=== PATIENT | male | born 1950 | race Caucasian/White ===

== ENCOUNTER 2018-09-30 13:25 | Inpatient (IN) | payer MEDICAID, OTHER ==
[2018-09-30] MEDS ORDERED: Aspirin 325 mg EC Tablets PO STA (14:42)
[2018-09-30 14:52] LABS: BASO % 0.3 % (0.0-2.0); EOS # 0.3 K/uL (0.0-0.7); EOS % 5.4 % (0.0-4.0); HEMOGLOBIN 14.5 g/dL (12.0-18.0); LYMPH # 1.8 K/uL (1.0-4.3); LYMPH % 32.3 % (20.0-40.0); MEAN CELL VOLUME 88.4 fL (80.0-94.0); MEAN CORPUSCULAR HEMOGLOBIN 30.1 pg (27.0-31.0); MEAN CORPUSCULAR HGB CONC 34.1 g/dL (33.0-37.0); MEAN PLATELET VOLUME 10.1 fL (7.2-11.7); MONO # 0.6 K/uL (0.0-0.8); MONO % 10.1 % (0.0-10.0); NEUT # 2.9 K/uL (1.8-7.0); NEUT % 51.9 % (50.0-75.0); NRBC % 0.1 % (0.0-2.0); RBC 4.81 Mil/uL (4.40-5.90); RED CELL DISTRIBUTION WIDTH 12.6 % (11.5-14.5); WHITE BLOOD COUNT 5.5 K/uL (4.8-10.8)
[2018-09-30 15:00] LABS: INR 2.8; PROTHROMBIN TIME 30.2 SECONDS (9.7-12.2)
[2018-09-30 15:07] LABS: ALB/GLOB RATIO 1.2 (1.0-2.1); ALT/SGPT 23 U/L (21-72); AST/SGOT 24 U/L (17-59); BLOOD UREA NITROGEN 15 mg/dL (9-20); CALCIUM 8.7 mg/dl (8.6-10.4); GFR NON-AFRICAN AMERICAN > 60
[2018-09-30 15:12] LABS: B-TYPE NATRIURETIC PEPTIDE 52.6 pg/mL (0-900)
[2018-09-30] MEDS ORDERED: Aspirin 325 mg EC Tablets PO ONE (15:25)
--- NOTE | 2018-09-30 15:25 | RAD ---
Date of service: 09/30/2018 PROCEDURE: CHEST RADIOGRAPH, 1 VIEW HISTORY: chest pain COMPARISON: None available. FINDINGS: LUNGS: Clear. PLEURA: No pneumothorax or pleural fluid seen. CARDIOVASCULAR: No aortic atherosclerotic calcification present. No radiographic findings to suggest acute or significant cardiovascular disease. Incidental Finding(s): Postoperative changes related to sternotomy. OSSEOUS STRUCTURES: No significant abnormalities. VISUALIZED UPPER ABDOMEN: Normal. OTHER FINDINGS: None. IMPRESSION: No active disease.
--- NOTE | 2018-09-30 15:54 | C.PDOC ---
History Of Present Illness 67 y/o male presents to ED with c/o chest pain since last night associated with dyspnea on exertion. As per daughter patient has been more sob and unable to walk 1 flight of stairs. As per daughter patient has history of CABG 4 years ago and currently denies nausea, vomiting, diarrhea, leg swelling or any other complaints at this time. Time Seen by Provider: 09/30/18 13:54 Chief Complaint (Nursing): Chest Pain History Per: Patient, Family History/Exam Limitations: no limitations Onset/Duration Of Symptoms: Days Current Symptoms Are (Timing): Still Present Past Medical History Reviewed: Historical Data, Nursing Documentation, Vital Signs Vital Signs: Last Vital Signs Temp 98.1 F 09/30/18 13:34 Pulse 72 09/30/18 13:34 Resp 18 09/30/18 13:34 BP 118/70 09/30/18 13:34 Pulse Ox 95 09/30/18 13:34 - Medical History PMH: HTN Surgical History: No Surg Hx Family History: States: No Known Family Hx - Social History Hx Alcohol Use: No Hx Substance Use: No Review Of Systems Constitutional: Negative for: Fever, Chills Cardiovascular: Positive for: Chest Pain Respiratory: Positive for: SOB with Excertion. Negative for: Cough Gastrointestinal: Negative for: Nausea, Vomiting, Diarrhea Skin: Negative for: Rash Physical Exam - Physical Exam Appears: Non-toxic, Chronically Ill Skin: Warm, Dry, No Rash Head: Atraumatic, Normacephalic Eye(s): bilateral: Normal Inspection, PERRL, EOMI Oral Mucosa: Moist Throat: No Erythema, No Exudate Neck: Normal ROM, Supple Chest: Symmetrical, No Tenderness Cardiovascular: Rhythm Regular, No Friction Rub, No Murmur Respiratory: Normal Breath Sounds, No Rales, No Rhonchi, No Wheezing Gastrointestinal/Abdominal: Soft, No Tenderness, No Guarding, No Rebound Back: Normal Inspection, No CVA Tenderness Extremity: Normal ROM, No Pedal Edema, Capillary Refill (<2 seconds), No Swelling Neurological/Psych: Oriented x3, Normal Speech, Normal Cognition, Normal Motor Gait: Steady ED Course And Treatment - Laboratory Results Result Diagrams: 09/30/18 14:48 09/30/18 14:48 O2 Sat by Pulse Oximetry: 95 (RA) Pulse Ox Interpretation: Normal Medical Decision Making Medical Decision Making: The case was discussed with the hospitalist Dr. Obrien who agrees to place the patient on observation. Disposition - Disposition Disposition: HOSPITALIZED Disposition Time: 16:50 Condition: STABLE Forms: [facility] (Kenyan) - POA Present On Arrival: None - Clinical Impression Clinical Impression: Chest pain, Dyspnea on exertion - PA / MARKETING DEVELOPMENT REPRESENTATIVE / Resident Statement MD/DO has reviewed & agrees with the documentation as recorded. - Scribe Statement The provider has reviewed the documentation as recorded by the Luisibbutch Shahid All medical record entries made by the Luisibbutch were at my direction and personally dictated by me. I have reviewed the chart and agree that the record accurately reflects my personal performance of the history, physical exam, medical decision making, and the department course for this patient. I have also personally directed, reviewed, and agree with the discharge instructions and disposition.
--- NOTE | 2018-09-30 19:48 | CP.PCM.HP ---
History of Present Illness - History of Present Illness History of Present Illness: CC: Left sided Chest Pain Michaele: [employer] Follow Up Specialist HPI: Patient is a 67 year old male with past medical history of HTN, DM, CAD, CA BG (November 21, 2013 at [facility]), bilateral Glaucoma, who presents to the ED with his daughter with complaints of left-sided chest pain that has started 2-3 days ago around 10-11am while he was at home resting. Patient reports that since the initiation of his chest pain, he has been e xperiencing his symptoms daily in an intermittent pattern. Patient describes his chest pain as non-radiating dull, achy intermittent pain that lasts for 15-20 minutes that is relieve by a medication patient cannot recall. Patient reports that his chest pain occurs at rest and on exertion. Patient denies any other associated symptoms such as nausea, vomiting, diaphoresis, palpitations, syncope and numbness/tingling but does admits to mild shortness of breath that exacerbated on exertion. Patient [place] most of his care in his country Code Status: Full code PMD: None Production Line Operator: None PMHx:HTN, DM, CAD, bilateral Glaucoma PSHx: CABG (November 21, 2013 at [facility]), FHx: Unknown Medications: As per EMR: Asa 81mg PO QD, Plavix 75mg PO daily, liptor 10mg PO HS, Azpot 1drop OU BID, warfarin 5mg PO daily and Zioptan 1 drop OU HS Allergies: NKDA Social Hx: Lives with one of his daughter in [place]. Retired. Denies any current or former use of Tobacco, ETOH and illicit drug use Present on Admission - Present on Admission Any Indicators Present on Admission: No Review of Systems - Constitutional Constitutional: absent: Chills, Fever, Headache - EENT Eyes: absent: Blurred Vision, Change in Vision Ears: absent: Dizziness Nose/Mouth/Throat: absent: Epistaxis, Nasal Congestion - Cardiovascular Cardiovascular: Chest Pain, Chest Pain at Rest, Chest Pain with Activity, Dyspnea on Exertion. absent: Edema, Irregular Heart Rhythm, Leg Edema, Leg Ulcers, Lightheadedness, Orthopnea, Palpitations, Paroxysmal Nocturnal Dyspnea, Pedal Edema, Radiating Pain - Respiratory Respiratory: Dyspnea. absent: Hemoptysis, Dyspnea on Exertion, Wheezing, Snoring, Pain on Inspiration - Gastrointestinal Gastrointestinal: absent: Abdominal Pain, Change in Bowel Habits, Diarrhea, Hematemesis, Hematochezia, Nausea, Vomiting - Genitourinary Genitourinary: absent: Change in Urinary Stream, Difficulty Urinating, Dysuria - Neurological Neurological: absent: Disequilibrium, Dizziness, Headaches, Lack of Coordination, Tremor - Psychiatric Psychiatric: absent: Anxiety - Endocrine Endocrine: absent: Fatigue, Palpitations Past Patient History - Past Social History Smoking Status: Never Smoked - CARDIAC Hx Hypertension: Yes - HEENT Hx Glaucoma: Yes (both eyes) - ENDOCRINE/METABOLIC Hx Diabetes Mellitus Type 2: Yes - PSYCHIATRIC Hx Substance Use: No - SURGICAL HISTORY Hx Gastric Bypass Surgery: Yes (2013) Meds Allergies/Adverse Reactions: Allergies Allergy/AdvReac Type Severity Reaction Status Date / Time No Known Allergies Allergy Unverified 09/30/18 13:42 Physical Exam - Constitutional Appears: No Acute Distress - Head Exam Head Exam: ATRAUMATIC, NORMAL INSPECTION - Eye Exam Eye Exam: EOMI, Normal appearance - ENT Exam ENT Exam: Mucous Membranes Moist - Respiratory Exam Respiratory Exam: Clear to Auscultation Bilateral, NORMAL BREATHING PATTERN. absent: Chest Wall Tenderness, Prolonged Expiratory Phase, Rales, Rhonchi, Wheezes Additional comments: Healed mid-sternum scar; s/p CABG 2013 - Cardiovascular Exam Cardiovascular Exam: Bradycardia, REGULAR RHYTHM, +S1, +S2 - GI/Abdominal Exam GI & Abdominal Exam: Normal Bowel Sounds, Soft. absent: Diminished Bowel Sounds, Distended, Firm, Guarding, Tenderness - Extremities Exam Extremities exam: Positive for: normal inspection. Negative for: calf tenderness, pedal edema - Back Exam Back exam: NORMAL INSPECTION. absent: CVA tenderness (L), CVA tenderness (R) - Neurological Exam Neurological exam: Alert, Oriented x3 - Psychiatric Exam Psychiatric exam: Normal Affect - Skin Skin Exam: Normal Color Results - Vital Signs Recent Vital Signs: Last Vital Signs Temp 98.1 F 09/30/18 13:34 Pulse 72 09/30/18 13:34 Resp 18 09/30/18 13:34 BP 118/70 09/30/18 13:34 Pulse Ox 95 09/30/18 16:53 - Labs Result Diagrams: 09/30/18 14:48 09/30/18 14:48 Labs: Laboratory Results - last 24 hr 09/30/18 09/30/18 09/30/18 14:48 14:48 14:48 WBC 5.5 RBC 4.81 Hgb 14.5 Hct 42.5 MCV 88.4 MCH 30.1 MCHC 34.1 RDW 12.6 Plt Count 159 MPV 10.1 Neut % (Auto) 51.9 Lymph % (Auto) 32.3 [place] % (Auto) 10.1 H Eos % (Auto) 5.4 H Baso % (Auto) 0.3 Neut # (Auto) 2.9 Lymph # (Auto) 1.8 [place] # (Auto) 0.6 Eos # (Auto) 0.3 Baso # (Auto) 0.0 PT 30.2 H INR 2.8 APTT 38 H Sodium 135 Potassium 3.4 L Chloride 100 Carbon Dioxide 24 Anion Gap 15 BUN 15 Creatinine 0.8 Est GFR ( Amer) > 60 Est GFR (Non-Af Amer) > 60 Random Glucose 224 H Calcium 8.7 Total Bilirubin 0.6 AST 24 ALT 23 Alkaline Phosphatase 46 Troponin I < 0.0120 NT-Pro-B Natriuret Pep 52.6 Total Protein 7.2 Albumin 4.0 Globulin 3.2 Albumin/Globulin Ratio 1.2 Assessment & Plan (1) Chest pain Assessment and Plan: Consultation: - Cardiology, Dr. Amin--> Help appreciated * Management as per recommendation Imaging/Labs: * EKG: NSR at 72 BPM, T-wave inversion in anterolateral leads * F/u subsequent EKG * F/u Echocardiogram * Troponin negative X1, F/u NAYLA panel X2 * F/u TSH, free T4, HgbA1c, Lipid Panel, Management: * ASA 325mg PO given in the ED * ASA 81mg PO daily * Continue Plavix 75mg PO daily * Crestor 5mg PO HS Status: Acute (2) Diabetes mellitus Assessment and Plan: F/u HgbA1c Unknown medications ISS-Low dose Accuchecks ACHS Hypoglycemia protocol Status: Acute (3) HTN (hypertension) Assessment and Plan: No home meds Will monitor with vital signs Q4H Will initiate medications as needed Status: Acute (4) HLD (hyperlipidemia) Assessment and Plan: f/U Lipid panel Continue home med: Lipitor 10mg PO HS---> Inpatient dose of Crestor 5mg PO HS Status: Acute (5) Glaucoma Assessment and Plan: Dorzolamide OU TID Status: Acute (6) Hypokalemia Assessment and Plan: 3.4 on admission KCL 20meq soln Will monitor with am labs Status: Acute (7) Prophylactic measure Assessment and Plan: DVT: SCDs, lovenox 40mg SC daily GI: Not indicated Heart healthy diet Disposition: Will confirm about indication for Warfarin in the am and will initiate appropriately All plans and management discussed with Dr. Lerner Status: Acute
[2018-09-30] MEDS ORDERED: Potassium Chloride 20 mEq/15 ml LIQ UD PO ONE (20:02)
[2018-09-30] MEDS ORDERED: Glucagon Recombinant 1 mg Inj IM PRN (20:04)
[2018-09-30] MEDS ORDERED: Dextrose 50% SYRINGE Inj (50 ml) IV PRN (20:04)
[2018-09-30] MEDS ORDERED: Potassium Chloride 20 mEq/15 ml LIQ UD ONE (20:28)
[2018-09-30 21:28] LABS: INR 2.9; PROTHROMBIN TIME 31.4 SECONDS (9.7-12.2)
[2018-09-30 21:36] LABS: CK-MB 0.72 ng/mL (0.0-3.38)
[2018-09-30] MEDS: (Novolog) Insulin Aspart, Recombinant 100 u/ml 10 ml vial SC SCH (22:05)
[2018-09-30 23:54] VITALS: RESP 20
[2018-10-01] MEDS: (Novolog) Insulin Aspart, Recombinant 100 u/ml 10 ml vial SC SCH ×4 (07:30→21:45)
[2018-10-01 08:38] LABS: BASO % 0.5 % (0.0-2.0); EOS # 0.3 K/uL (0.0-0.7); EOS % 5.3 % (0.0-4.0); HEMOGLOBIN 14.8 g/dL (12.0-18.0); LYMPH # 1.6 K/uL (1.0-4.3); LYMPH % 32.3 % (20.0-40.0); MEAN CELL VOLUME 89.2 fL (80.0-94.0); MEAN CORPUSCULAR HEMOGLOBIN 30.6 pg (27.0-31.0); MEAN CORPUSCULAR HGB CONC 34.3 g/dL (33.0-37.0); MEAN PLATELET VOLUME 9.8 fL (7.2-11.7); MONO # 0.5 K/uL (0.0-0.8); MONO % 9.7 % (0.0-10.0); NEUT # 2.6 K/uL (1.8-7.0); NEUT % 52.2 % (50.0-75.0); RBC 4.83 Mil/uL (4.40-5.90); RED CELL DISTRIBUTION WIDTH 12.7 % (11.5-14.5)
[2018-10-01 09:34] LABS: LDL CHOLESTEROL 91 mg/dL (0-129)
[2018-10-01 09:37] LABS: ALB/GLOB RATIO 1.2 (1.0-2.1); ALBUMIN 4.1 g/dL (3.5-5.0); ALT/SGPT 25 U/L (21-72); AST/SGOT 30 U/L (17-59); BLOOD UREA NITROGEN 13 mg/dL (9-20); CALCIUM 8.9 mg/dl (8.6-10.4); GFR NON-AFRICAN AMERICAN > 60; HDL CHOLESTEROL 28 mg/dL (30-70)
[2018-10-01] MEDS: Dorzolamide 2% Opht Sol 10ml OU SCH ×3 (10:00→19:00)
[2018-10-01] MEDS ORDERED: Enoxaparin 40 mg Syringe SC SCH (10:00)
[2018-10-01] MEDS: Metoprolol Succinate 25 mg XL Tab PO SCH (11:15)
--- NOTE | 2018-10-01 11:15 | CP.PCM.CON ---
History of Present Illness - History of Present Illness History of Present Illness: Rizwan Peralta DO, PGY-1 Cardiology Consult Note for Dr. Amin Mr. Davila is a 67 year old male with PMH of CAD (s/p CABG, no stents), HTN, DM2, and b/l glaucoma who presented to ED with typical cardiac L sided CP. He states that the pain was a pressure-like sensation that did not radiate. Since admission, his CP has resolved and patient states he feels fine. He does admit to getting intermittent episodes of chest pain with exertion prior to this incident in which the pain was more prolonged and worsened. He also endorses intermittent SOB with these episodes of CP. He states that he typically lives in [facility] and is only in the currently visiting. However, he had his CABG completed at [facility] in 2013. Currently, he denies fever/chills, CP, SOB, nausea/vomiting/diarrhea/constipation, diaphoresis, palpitations, YANCEY, blurred vision, or urinary complaints. PMD: none PMH: CAD (s/p CABG, no stents), HTN, DM2, and b/l glaucoma PSH: CABG at [facility] in 2013, Home meds: warfarin 5 mg PO daily (patient cannot recall why he is on warfarin at home) Asa 81mg PO daily, Plavix 75mg PO daily, liptor 10mg PO HS, Azpot 1drop OU BID, and Zioptan 1 drop OU HS Allergies: NKA Fam Hx: reviewed, denies fam hx of premature cardiac or CO Soc Hx: reports that he normally lives in [facility] but is currently living with his daughter in [place] visiting, denies current or prior tobacco, alcohol, or drug use Review of Systems - Constitutional Constitutional: absent: Chills, Fever - EENT Eyes: absent: Change in Vision - Cardiovascular Cardiovascular: absent: Chest Pain, Chest Pain at Rest, Diaphoresis, Dyspnea, Palpitations - Respiratory Respiratory: absent: Cough, Dyspnea - Gastrointestinal Gastrointestinal: absent: Abdominal Pain, Nausea, Vomiting - Genitourinary Genitourinary: absent: Change in Urinary Stream Past Patient History - Past Social History Smoking Status: Never Smoked - CARDIAC Hx Hypertension: Yes - HEENT Hx Glaucoma: Yes (both eyes) - ENDOCRINE/METABOLIC Hx Diabetes Mellitus Type 2: Yes - MUSCULOSKELETAL/RHEUMATOLOGICAL Hx Falls: No - PSYCHIATRIC Hx Substance Use: No - SURGICAL HISTORY Hx Gastric Bypass Surgery: Yes (2013) Meds Allergies/Adverse Reactions: Allergies Allergy/AdvReac Type Severity Reaction Status Date / Time No Known Allergies Allergy Unverified 09/30/18 13:42 - Medications Medications: Current Medications Clopidogrel Bisulfate (Plavix) 75 mg PO DAILY [facility] Last Admin: 10/01/18 10:56 Dose: 75 mg Dextrose (Dextrose 50% Inj) 0 ml IV STAT PRN; Protocol PRN Reason: Hypoglycemia Protocol Dextrose (Glutose 15) 0 gm PO ONCE PRN; Protocol PRN Reason: Hypoglycemia Protocol Dorzolamide HCl (Trusopt) 0 ml OU TID DAISY Glucagon (Glucagen Diagnostic Kit) 0 mg IM STAT PRN; Protocol PRN Reason: Hypoglycemia Protocol Dextrose (Dextrose 5% In Water 1000 Ml) 1,000 mls @ 0 mls/hr IV .Q0M PRN; Protocol PRN Reason: Hypoglycemia Protocol Influenza Virus Vaccine (Fluzone Quad [id number]) 60 mcg IM .ONCE ONE Stop: 10/03/18 10:01 Insulin Aspart (Novolog) 0 unit SC ACHS [facility]; Protocol Last Admin: 10/01/18 07:30 Dose: Not Given Latanoprost (Xalatan Opht) 0.05 ml OU QPM [facility] Metoprolol Succinate (Toprol Xl) 25 mg PO DAILY [facility] Pneumococcal Polyvalent Vaccine (Pneumovax 23 Vaccine) 0.5 ml IM .ONCE ONE Stop: 10/03/18 10:01 Rosuvastatin Calcium (Crestor) 5 mg PO HS [facility] Last Admin: 09/30/18 22:03 Dose: 5 mg Physical Exam - Constitutional Appears: Non-toxic, No Acute Distress - Head Exam Head Exam: ATRAUMATIC, NORMOCEPHALIC - Eye Exam Eye Exam: EOMI, Normal appearance, PERRL - ENT Exam ENT Exam: Mucous Membranes Moist - Neck Exam Neck exam: Positive for: Full Rom, Normal Inspection - Respiratory Exam Respiratory Exam: Clear to Auscultation Bilateral, NORMAL BREATHING PATTERN. absent: Rales, Rhonchi, Wheezes - Cardiovascular Exam Cardiovascular Exam: REGULAR RHYTHM, RRR, +S1, +S2. absent: Diastolic murmur, Gallop, Rubs, Systolic Murmur - GI/Abdominal Exam GI & Abdominal Exam: Normal Bowel Sounds. absent: Guarding, Tenderness - Extremities Exam Extremities exam: Positive for: normal inspection. Negative for: pedal edema - Back Exam Back exam: FULL ROM, NORMAL INSPECTION - Neurological Exam Neurological exam: Alert, Oriented x3 - Psychiatric Exam Psychiatric exam: Normal Affect, Normal Mood - Skin Skin Exam: Dry, Intact, Warm Results - Vital Signs Recent Vital Signs: Last Vital Signs Temp 98.0 F 10/01/18 07:58 Pulse 56 L 10/01/18 08:00 Resp 20 10/01/18 07:58 BP 130/79 10/01/18 07:58 Pulse Ox 95 10/01/18 07:58 - Labs Result Diagrams: 10/01/18 08:28 10/01/18 08:28 Labs: Laboratory Results - last 24 hr 09/30/18 09/30/18 09/30/18 14:48 14:48 14:48 WBC 5.5 RBC 4.81 Hgb 14.5 Hct 42.5 MCV 88.4 MCH 30.1 MCHC 34.1 RDW 12.6 Plt Count 159 MPV 10.1 Neut % (Auto) 51.9 Lymph % (Auto) 32.3 [place] % (Auto) 10.1 H Eos % (Auto) 5.4 H Baso % (Auto) 0.3 Neut # (Auto) 2.9 Lymph # (Auto) 1.8 [place] # (Auto) 0.6 Eos # (Auto) 0.3 Baso # (Auto) 0.0 PT 30.2 H INR 2.8 APTT 38 H Sodium 135 Potassium 3.4 L Chloride 100 Carbon Dioxide 24 Anion Gap 15 BUN 15 Creatinine 0.8 Est GFR ( Amer) > 60 Est GFR (Non-Af Amer) > 60 POC Glucose (mg/dL) Random Glucose 224 H Hemoglobin A1c Calcium 8.7 Phosphorus Magnesium Total Bilirubin 0.6 AST 24 ALT 23 Alkaline Phosphatase 46 Total Creatine Kinase CK-MB (Mass) Troponin I < 0.0120 NT-Pro-B Natriuret Pep 52.6 Total Protein 7.2 Albumin 4.0 Globulin 3.2 Albumin/Globulin Ratio 1.2 Triglycerides Cholesterol LDL Cholesterol Direct HDL Cholesterol Free T4 TSH 3rd Generation 09/30/18 09/30/18 09/30/18 19:18 21:08 21:08 WBC RBC Hgb Hct MCV MCH MCHC RDW Plt Count MPV Neut % (Auto) Lymph % (Auto) [place] % (Auto) Eos % (Auto) Baso % (Auto) Neut # (Auto) Lymph # (Auto) [place] # (Auto) Eos # (Auto) Baso # (Auto) PT 31.4 H INR 2.9 APTT 37 H Sodium Potassium Chloride Carbon Dioxide Anion Gap BUN Creatinine Est GFR ( Amer) Est GFR (Non-Af Amer) POC Glucose (mg/dL) Random Glucose Hemoglobin A1c Calcium Phosphorus Magnesium Total Bilirubin AST ALT Alkaline Phosphatase Total Creatine Kinase 95 CK-MB (Mass) 0.72 Troponin I < 0.0120 NT-Pro-B Natriuret Pep Total Protein Albumin Globulin Albumin/Globulin Ratio Triglycerides Cholesterol LDL Cholesterol Direct HDL Cholesterol Free T4 TSH 3rd Generation 1.29 10/01/18 10/01/18 10/01/18 02:25 06:38 08:28 WBC 5.0 RBC 4.83 Hgb 14.8 Hct 43.1 MCV 89.2 MCH 30.6 MCHC 34.3 RDW 12.7 Plt Count 156 MPV 9.8 Neut % (Auto) 52.2 Lymph % (Auto) 32.3 [place] % (Auto) 9.7 Eos % (Auto) 5.3 H Baso % (Auto) 0.5 Neut # (Auto) 2.6 Lymph # (Auto) 1.6 [place] # (Auto) 0.5 Eos # (Auto) 0.3 Baso # (Auto) 0.0 PT INR APTT Sodium Potassium Chloride Carbon Dioxide Anion Gap BUN Creatinine Est GFR ( Amer) Est GFR (Non-Af Amer) POC Glucose (mg/dL) 138 H Random Glucose Hemoglobin A1c Calcium Phosphorus Magnesium Total Bilirubin AST ALT Alkaline Phosphatase Total Creatine Kinase 86 CK-MB (Mass) 0.80 Troponin I < 0.0120 NT-Pro-B Natriuret Pep Total Protein Albumin Globulin Albumin/Globulin Ratio Triglycerides Cholesterol LDL Cholesterol Direct HDL Cholesterol Free T4 TSH 3rd Generation 10/01/18 10/01/18 10/01/18 08:28 08:28 08:28 WBC RBC Hgb Hct MCV MCH MCHC RDW Plt Count MPV Neut % (Auto) Lymph % (Auto) [place] % (Auto) Eos % (Auto) Baso % (Auto) Neut # (Auto) Lymph # (Auto) [place] # (Auto) Eos # (Auto) Baso # (Auto) PT INR APTT Sodium 137 Potassium 4.1 Chloride 102 Carbon Dioxide 24 Anion Gap 15 BUN 13 Creatinine 0.9 Est GFR ( Amer) > 60 Est GFR (Non-Af Amer) > 60 POC Glucose (mg/dL) Random Glucose 152 H Hemoglobin A1c 8.7 H Calcium 8.9 Phosphorus 3.2 Magnesium 1.8 Total Bilirubin 0.7 AST 30 ALT 25 Alkaline Phosphatase 50 Total Creatine Kinase CK-MB (Mass) Troponin I NT-Pro-B Natriuret Pep Total Protein 7.6 Albumin 4.1 Globulin 3.5 Albumin/Globulin Ratio 1.2 Triglycerides 234 H Cholesterol 159 LDL Cholesterol Direct 91 HDL Cholesterol 28 L Free T4 0.82 TSH 3rd Generation Assessment & Plan - Assessment and Plan (Free Text) Assessment: 67 yo M with PMH of CAD (s/p CABG, no stents), HTN, DM2, and b/l glaucoma presented to ED with typical cardiac CP concerning for stable angina from CAD. Plan: 1. Stable angina Chest pain since admission has resolved Patient admits to prior episodes of exertional CP Given hx of CAD/CABG, would normally proceed with cardiac cath However, patient's INR today is 2.9 Unknown why patient is taking warfarin Will perform hiram scan nuclear stress test tomorrow for visualization Case and plan were reviewed and discussed with my attending Dr. Brennan Peralta, IM Resident PGY-1
--- NOTE | 2018-10-01 11:46 | CARD ---
APPROVED REPORT Date of service: 09/30/2018 EKG Measurement Heart [id number] ID [id number] <Conclusion> Normal sinus rhythm Left axis deviation Nonspecific T wave abnormality Abnormal ECG
--- NOTE | 2018-10-01 11:46 | CARD ---
APPROVED REPORT Date of service: 09/30/2018 EKG Measurement Heart [id number] <Conclusion> Sinus bradycardia T wave abnormality, consider anterior ischemia Abnormal ECG
[2018-10-01] MEDS ORDERED: Metoprolol Succinate 12.5 mg XL Tab PO SCH (12:15)
--- NOTE | 2018-10-01 15:45 | CP.PCM.PN ---
Subjective - Date & Time of Evaluation Date of Evaluation: 10/01/18 Time of Evaluation: 15:43 - Subjective Subjective: HOSPITALIST SERVICE Pt seen and examined at bedside. Pt denies acute events overnight, says chest pain is improved greatly, pt is able to walk laps around floor without getting SOB. Pt denies fc nv. Pt unaware of why he is taking his coumadin. Objective - Vital Signs/Intake and Output Vital Signs (last 24 hours): Temp Pulse Resp BP Pulse Ox 98.0 F 63 20 130/79 95 10/01/18 07:58 10/01/18 12:01 10/01/18 07:58 10/01/18 07:58 10/01/18 07:58 Intake and Output: 10/01/18 10/01/18 06:59 18:59 Intake Total 300 Balance 300 - Medications Medications: Current Medications Clopidogrel Bisulfate (Plavix) 75 mg PO DAILY [facility] Last Admin: 10/01/18 10:56 Dose: 75 mg Dextrose (Dextrose 50% Inj) 0 ml IV STAT PRN; Protocol PRN Reason: Hypoglycemia Protocol Dextrose (Glutose 15) 0 gm PO ONCE PRN; Protocol PRN Reason: Hypoglycemia Protocol Dorzolamide HCl (Trusopt) 0 ml OU TID [facility] Last Admin: 10/01/18 13:53 Dose: Not Given Glucagon (Glucagen Diagnostic Kit) 0 mg IM STAT PRN; Protocol PRN Reason: Hypoglycemia Protocol Dextrose (Dextrose 5% In Water 1000 Ml) 1,000 mls @ 0 mls/hr IV .Q0M PRN; Protocol PRN Reason: Hypoglycemia Protocol Influenza Virus Vaccine (Fluzone Quad [id number]) 60 mcg IM .ONCE ONE Stop: 10/03/18 10:01 Insulin Aspart (Novolog) 0 unit SC ACHS [facility]; Protocol Last Admin: 10/01/18 11:30 Dose: Not Given Latanoprost (Xalatan Opht) 0.05 ml OU QPM [facility] Lisinopril (Zestril) 2.5 mg PO DAILY [facility] Metoprolol Succinate (Toprol Xl) 25 mg PO DAILY [facility] Last Admin: 10/01/18 11:15 Dose: Not Given Metoprolol Succinate (Toprol Xl) 12.5 mg PO DAILY [facility] Last Admin: 10/01/18 12:15 Dose: Not Given Pneumococcal Polyvalent Vaccine (Pneumovax 23 Vaccine) 0.5 ml IM .ONCE ONE Stop: 10/03/18 10:01 Rosuvastatin Calcium (Crestor) 5 mg PO HS DAISY Last Admin: 09/30/18 22:03 Dose: 5 mg - Labs Labs: 10/01/18 08:28 10/01/18 08:28 PT 31.4 SECONDS (9.7-12.2) H 09/30/18 21:08 INR 2.9 09/30/18 21:08 APTT 37 SECONDS (21-34) H 09/30/18 21:08 - Additional Findings Additional findings: - Constitutional Appears: No Acute Distress - Head Exam Head Exam: ATRAUMATIC, NORMAL INSPECTION - Eye Exam Eye Exam: EOMI, Normal appearance - ENT Exam ENT Exam: Mucous Membranes Moist - Respiratory Exam Respiratory Exam: Clear to Auscultation Bilateral, NORMAL BREATHING PATTERN. absent: Chest Wall Tenderness, Prolonged Expiratory Phase, Rales, Rhonchi, Wheezes Additional comments: Healed mid-sternum scar; s/p CABG 2013 - Cardiovascular Exam Cardiovascular Exam: Bradycardia, REGULAR RHYTHM, +S1, +S2 - GI/Abdominal Exam GI & Abdominal Exam: Normal Bowel Sounds, Soft. absent: Diminished Bowel Sounds, Distended, Firm, Guarding, Tenderness - Extremities Exam Extremities exam: Positive for: normal inspection. Negative for: calf tenderness, pedal edema - Back Exam Back exam: NORMAL INSPECTION. absent: CVA tenderness (L), CVA tenderness (R) - Neurological Exam Neurological exam: Alert, Oriented x3 - Psychiatric Exam Psychiatric exam: Normal Affect - Skin Skin Exam: Normal Color Assessment and Plan - Assessment and Plan (Free Text) Assessment: Chest Pain - Cardiology, Dr. Amin--> Will perform hiram scan nuclear stress test tomorrow for visualization * EKG: NSR at 72 BPM, T-wave inversion in anterolateral leads * Similar subsequent EKG * Echocardiogram pending read * Troponin negative X2, NAYLA panel neg X2 * ASA 325mg PO given in the ED * ASA 81mg PO daily * Continue Plavix 75mg PO daily * Crestor 5mg PO HS * Lisinopril 2.5mg QD * Toprol XL 12.5mg QD DM HgbA1c 8.9 Unknown medications ISS-Low dose Accuchecks ACHS Hypoglycemia protocol HTN No home meds Will monitor with vital signs Q4H Will initiate medications as needed Dr Amin Consulted HLD Lipitor 10mg PO HS---> Inpatient dose of Crestor 5mg PO HS Glaucoma Dorzolamide OU TID Lantaprost OU TID HypoKalemia- resolved PPX DVT: SCDs, lovenox 40mg SC daily GI: Not indicated Heart healthy diet Disposition: Will confirm about indication for Warfarin in the am and will initiate appropriately, stress test sudhir Amin tmrw, possible cath fri All plans and management discussed with Dr. Lerner Status: Acute
[2018-10-01] MEDS ORDERED: Latanoprost 2.5 ml Opht Soln OU SCH (18:00)
[2018-10-02 07:59] VITALS: O2SAT 96
[2018-10-02 08:12] LABS: BASO % 0.7 % (0.0-2.0); EOS # 0.2 K/uL (0.0-0.7); EOS % 4.5 % (0.0-4.0); HEMOGLOBIN 15.6 g/dL (12.0-18.0); LYMPH # 1.6 K/uL (1.0-4.3); LYMPH % 33.1 % (20.0-40.0); MEAN CELL VOLUME 89.6 fL (80.0-94.0); MEAN CORPUSCULAR HEMOGLOBIN 31.3 pg (27.0-31.0); MEAN CORPUSCULAR HGB CONC 34.9 g/dL (33.0-37.0); MEAN PLATELET VOLUME 9.4 fL (7.2-11.7); MONO # 0.4 K/uL (0.0-0.8); MONO % 8.7 % (0.0-10.0); NEUT # 2.6 K/uL (1.8-7.0); RED CELL DISTRIBUTION WIDTH 12.8 % (11.5-14.5)
[2018-10-02 08:24] LABS: INR 1.7; PROTHROMBIN TIME 18.8 SECONDS (9.7-12.2)
[2018-10-02] MEDS: (Novolog) Insulin Aspart, Recombinant 100 u/ml 10 ml vial SC SCH ×2 (08:42→13:47)
[2018-10-02 08:43] LABS: ALB/GLOB RATIO 1.1 (1.0-2.1); ALBUMIN 4.1 g/dL (3.5-5.0); ALT/SGPT 25 U/L (21-72); AST/SGOT 26 U/L (17-59); BLOOD UREA NITROGEN 13 mg/dL (9-20); CALCIUM 9.1 mg/dl (8.6-10.4); GFR NON-AFRICAN AMERICAN > 60
--- NOTE | 2018-10-02 09:12 | CP.PCM.PN ---
Subjective - Date & Time of Evaluation Date of Evaluation: 10/02/18 Time of Evaluation: 08:10 - Subjective Subjective: Rizwan Peralta DO, PGY-1 Cardiology Progress Note for Dr. Amin Patient was seen and examined at bedside this AM. He offers no new complaints and states he has not had any more episodes of chest pain or dyspnea. Objective - Vital Signs/Intake and Output Vital Signs (last 24 hours): Temp Pulse Resp BP Pulse Ox 97.4 F L 69 20 128/85 96 10/02/18 07:30 10/02/18 07:30 10/02/18 07:30 10/02/18 07:30 10/02/18 07:30 Intake and Output: 10/02/18 10/02/18 06:59 18:59 Intake Total 300 Balance 300 - Medications Medications: Current Medications Clopidogrel Bisulfate (Plavix) 75 mg PO DAILY [facility] Last Admin: 10/01/18 10:56 Dose: 75 mg Dextrose (Dextrose 50% Inj) 0 ml IV STAT PRN; Protocol PRN Reason: Hypoglycemia Protocol Dextrose (Glutose 15) 0 gm PO ONCE PRN; Protocol PRN Reason: Hypoglycemia Protocol Dorzolamide HCl (Trusopt) 0 ml OU TID [facility] Last Admin: 10/01/18 19:00 Dose: 1 drop Glucagon (Glucagen Diagnostic Kit) 0 mg IM STAT PRN; Protocol PRN Reason: Hypoglycemia Protocol Dextrose (Dextrose 5% In Water 1000 Ml) 1,000 mls @ 0 mls/hr IV .Q0M PRN; Protocol PRN Reason: Hypoglycemia Protocol Influenza Virus Vaccine (Fluzone Quad [id number]) 60 mcg IM .ONCE ONE Stop: 10/03/18 10:01 Insulin Aspart (Novolog) 0 unit SC ACHS [facility]; Protocol Last Admin: 10/02/18 08:42 Dose: Not Given Latanoprost (Xalatan Opht) 0.05 ml OU QPM [facility] Last Admin: 10/01/18 19:00 Dose: 0.05 ml Lisinopril (Zestril) 2.5 mg PO DAILY [facility] Metoprolol Succinate (Toprol Xl) 25 mg PO DAILY [facility] Last Admin: 10/01/18 11:15 Dose: Not Given Metoprolol Succinate (Toprol Xl) 12.5 mg PO DAILY [facility] Last Admin: 10/01/18 12:15 Dose: Not Given Pneumococcal Polyvalent Vaccine (Pneumovax 23 Vaccine) 0.5 ml IM .ONCE ONE Stop: 10/03/18 10:01 Rosuvastatin Calcium (Crestor) 5 mg PO HS [facility] Last Admin: 10/01/18 21:47 Dose: 5 mg - Labs Labs: 10/02/18 08:07 10/02/18 08:07 PT 18.8 SECONDS (9.7-12.2) H D 10/02/18 08:07 INR 1.7 D 10/02/18 08:07 APTT 33 SECONDS (21-34) 10/02/18 08:07 - Constitutional Appears: Non-toxic, No Acute Distress - Head Exam Head Exam: ATRAUMATIC, NORMOCEPHALIC - Eye Exam Eye Exam: EOMI, Normal appearance, PERRL - ENT Exam ENT Exam: Mucous Membranes Moist - Neck Exam Neck Exam: Full ROM, Normal Inspection - Respiratory Exam Respiratory Exam: Clear to Ausculation Bilateral, NORMAL BREATHING PATTERN. absent: Rales, Rhonchi, Wheezes - Cardiovascular Exam Cardiovascular Exam: REGULAR RHYTHM, RRR, +S1, +S2. absent: Gallop, Rubs, Murmur - GI/Abdominal Exam GI & Abdominal Exam: Soft, Normal Bowel Sounds. absent: Tenderness - Back Exam Back Exam: Full ROM, NORMAL INSPECTION - Neurological Exam Neurological Exam: Alert, Awake, Oriented x3 - Psychiatric Exam Psychiatric exam: Normal Affect, Normal Mood - Skin Skin Exam: Dry, Intact, Warm Assessment and Plan - Assessment and Plan (Free Text) Assessment: 67 yo M with PMH of CAD (s/p CABG, no stents), HTN, DM2, and b/l glaucoma presented to ED with typical cardiac CP concerning for stable angina from CAD. Given hx of CAD/CABG, presentation is concerning for recurrent CAD. Plan: 1. Stable angina Chest pain since admission has resolved Patient admits to prior episodes of exertional CP Given hx of CAD/CABG, would normally proceed with cardiac cath Patient's INR down to 1.7 Sveta stress test completed and showed no concerning areas of ischemia Cardiac cath not warranted at this time Case and plan were reviewed and discussed with my attending Dr. Brennan Peralta, DO IM Resident PGY-1
--- NOTE | 2018-10-02 10:11 | CP.PCM.PN ---
Subjective - Date & Time of Evaluation Date of Evaluation: 10/02/18 Time of Evaluation: 10:08 - Subjective Subjective: HOSPITALIST SERVICE Pt seen and examined at bedside, pt denies fc nv cp sob, pt understands going for stress test today with Dr Amin, possible cath. Objective - Vital Signs/Intake and Output Vital Signs (last 24 hours): Temp Pulse Resp BP Pulse Ox 97.4 F L 69 20 128/85 96 10/02/18 07:30 10/02/18 07:30 10/02/18 07:30 10/02/18 07:30 10/02/18 07:30 Intake and Output: 10/02/18 10/02/18 06:59 18:59 Intake Total 300 Balance 300 - Medications Medications: Current Medications Clopidogrel Bisulfate (Plavix) 75 mg PO DAILY [facility] Last Admin: 10/01/18 10:56 Dose: 75 mg Dextrose (Dextrose 50% Inj) 0 ml IV STAT PRN; Protocol PRN Reason: Hypoglycemia Protocol Dextrose (Glutose 15) 0 gm PO ONCE PRN; Protocol PRN Reason: Hypoglycemia Protocol Dorzolamide HCl (Trusopt) 0 ml OU TID [facility] Last Admin: 10/01/18 19:00 Dose: 1 drop Glucagon (Glucagen Diagnostic Kit) 0 mg IM STAT PRN; Protocol PRN Reason: Hypoglycemia Protocol Dextrose (Dextrose 5% In Water 1000 Ml) 1,000 mls @ 0 mls/hr IV .Q0M PRN; Protocol PRN Reason: Hypoglycemia Protocol Influenza Virus Vaccine (Fluzone Quad [id number]) 60 mcg IM .ONCE ONE Stop: 10/03/18 10:01 Insulin Aspart (Novolog) 0 unit SC ACHS [facility]; Protocol Last Admin: 10/02/18 08:42 Dose: Not Given Latanoprost (Xalatan Opht) 0.05 ml OU QPM [facility] Last Admin: 10/01/18 19:00 Dose: 0.05 ml Lisinopril (Zestril) 2.5 mg PO DAILY [facility] Metoprolol Succinate (Toprol Xl) 25 mg PO DAILY [facility] Last Admin: 10/01/18 11:15 Dose: Not Given Pneumococcal Polyvalent Vaccine (Pneumovax 23 Vaccine) 0.5 ml IM .ONCE ONE Stop: 10/03/18 10:01 Rosuvastatin Calcium (Crestor) 5 mg PO HS [facility] Last Admin: 10/01/18 21:47 Dose: 5 mg - Labs Labs: 10/02/18 08:07 10/02/18 08:07 PT 18.8 SECONDS (9.7-12.2) H D 10/02/18 08:07 INR 1.7 D 10/02/18 08:07 APTT 33 SECONDS (21-34) 10/02/18 08:07 - Additional Findings Additional findings: - Constitutional Appears: No Acute Distress - Head Exam Head Exam: ATRAUMATIC, NORMAL INSPECTION - Eye Exam Eye Exam: EOMI, Normal appearance - ENT Exam ENT Exam: Mucous Membranes Moist - Respiratory Exam Respiratory Exam: Clear to Auscultation Bilateral, NORMAL BREATHING PATTERN. absent: Chest Wall Tenderness, Prolonged Expiratory Phase, Rales, Rhonchi, Wheezes Additional comments: Healed mid-sternum scar; s/p CABG 2013 - Cardiovascular Exam Cardiovascular Exam: Bradycardia, REGULAR RHYTHM, +S1, +S2 - GI/Abdominal Exam GI & Abdominal Exam: Normal Bowel Sounds, Soft. absent: Diminished Bowel Soun ds, Distended, Firm, Guarding, Tenderness - Extremities Exam Extremities exam: Positive for: normal inspection. Negative for: calf tenderness, pedal edema - Back Exam Back exam: NORMAL INSPECTION. absent: CVA tenderness (L), CVA tenderness (R) - Neurological Exam Neurological exam: Alert, Oriented x3 - Psychiatric Exam Psychiatric exam: Normal Affect - Skin Skin Exam: Normal Color Assessment and Plan - Assessment and Plan (Free Text) Assessment: 67M admitted for Stable Angina Stable Angina - Cardiology, Dr. Amin--> Will perform hiram scan nuclear stress test tomorrow for visualization, possible cath * EKG: NSR at 72 BPM, T-wave inversion in anterolateral leads * Similar subsequent EKG * Echocardiogram pending read * Troponin negative X2, NAYLA panel neg X2 * ASA 325mg PO given in the ED * ASA 81mg PO daily * Continue Plavix 75mg PO daily * Crestor 5mg PO HS * Lisinopril 2.5mg QD * Toprol XL 12.5mg QD DM HgbA1c 8.9 Unknown medications ISS-Low dose Accuchecks ACHS Hypoglycemia protocol HTN No home meds Will monitor with vital signs Q4H Will initiate medications as needed Dr Amin Consulted stress test today, possible cath HLD Lipitor 10mg PO HS---> Inpatient dose of Crestor 5mg PO HS Glaucoma Dorzolamide OU TID Lantaprost OU TID HypoKalemia- resolved PPX DVT: SCDs, lovenox 40mg SC daily GI: Not indicated Heart healthy diet Disposition: Will confirm about indication for Warfarin in the am and will initiate appropriately, stress test sudhir cardonarw, possible cath fri All plans and management discussed with Dr. Lerner Status: Acute
[2018-10-02] MEDS: Metoprolol Succinate 25 mg XL Tab PO SCH (13:46)
[2018-10-02] MEDS: Dorzolamide 2% Opht Sol 10ml OU SCH ×2 (13:47→13:49)
--- NOTE | 2018-10-02 14:05 | CARD ---
APPROVED REPORT Date of service: 10/01/2018 EXAM: Two-dimensional and M-mode echocardiogram with Doppler and color Doppler. Other Information Quality : GoodRhythm : INDICATION Dyspnea RISK FACTORS Hypertension Hyperlipidemia Diabetes 2D DIMENSIONS IVSd0.8 (0.7-1.1cm)LVDd4.5 (3.9-5.9cm) PWd0.8 (0.7-1.1cm)LA Lgpkbs36 (18-58mL) LVDs2.6 (2.5-4.0cm)FS (%) 41.7 % LVEF (%)72.8 (>50%)LVEF (Kaplan's)66.74 % M-Mode DIMENSIONS Left Atrium (MM)4.47 (2.5-4.0cm)IVSd1.12 (0.7-1.1cm) Aortic Root3.38 (2.2-3.7cm)LVDd4.80 (4.0-5.6cm) Aortic Cusp Exc.2.13 (1.5-2.0cm)PWd0.86 (0.7-1.1cm) FS (%) 41 %LVDs2.84 (2.0-3.8cm) LVEF (%)71 (>50%) Mitral Valve MV E Haiiwfmm62.4cm/sMV A Jorhhnji12.8cm/sE/A ratio1.1 TDI Lateral E' Peak V12.00cm/sMedial E' Peak V4.61cm/sE/Lateral E'7.3 E/Medial E'19.0 Tricuspid Valve TR Peak [id number]/sTR Peak Gr.[id number] <Conclusion> normal size lv,wall motion,thickness & systolic & diastolic funciton with lvef of 65-70% la is mildly dilated. normal ra,rv. sclerotic trileaflet aortic valve. normal mitral,tv & pv. mild tr & pi with normal pulmonary systolic pressures of 29 mm of hg. normal size aortic root. no pericardial effusion.
[2018-10-02 15:49] VITALS: BP 160/92; PULSE 66; TEMP 98.2
--- NOTE | 2018-10-02 17:19 | CARD ---
APPROVED REPORT Date of service: 10/01/2018 EKG Measurement Heart [id number] <Conclusion> Sinus bradycardia Nonspecific T wave abnormality Abnormal ECG
--- NOTE | 2018-10-02 18:40 | CP.PCM.DIS ---
Provider - Provider Date of Admission: 10/02/18 13:05 Attending physician: Tiarra Obrien MD Consults: 09/30/18 19:53 Physician Consult Routine Comment: Consulting Provider: Jacek Amin Consulting Physician: Jacek Amin Reason for Consult: Chest pain, Hx of CAD and CABG in Oct 2013 at [facility] 10/01/18 01:05 Inpatient TRAVEL ACCOMMODATIONS RATER Core Measures Referral Routine Comment: Physician Instructions: Reason For Exam: triggered Time Spent in preparation of Discharge (in minutes): 45 Hospital Course - Lab Results Lab Results: Most Recent Lab Values WBC 5.0 K/uL (4.8-10.8) 10/02/18 08:07 RBC 5.00 Mil/uL (4.40-5.90) 10/02/18 08:07 Hgb 15.6 g/dL (12.0-18.0) 10/02/18 08:07 Hct 44.8 % (35.0-51.0) 10/02/18 08:07 MCV 89.6 fL (80.0-94.0) 10/02/18 08:07 MCH 31.3 pg (27.0-31.0) H 10/02/18 08:07 MCHC 34.9 g/dL (33.0-37.0) 10/02/18 08:07 RDW 12.8 % (11.5-14.5) 10/02/18 08:07 Plt Count 159 K/uL (130-400) 10/02/18 08:07 MPV 9.4 fL (7.2-11.7) 10/02/18 08:07 Neut % (Auto) 53.0 % (50.0-75.0) 10/02/18 08:07 Lymph % (Auto) 33.1 % (20.0-40.0) 10/02/18 08:07 Taney % (Auto) 8.7 % (0.0-10.0) 10/02/18 08:07 Eos % (Auto) 4.5 % (0.0-4.0) H 10/02/18 08:07 Baso % (Auto) 0.7 % (0.0-2.0) 10/02/18 08:07 Neut # (Auto) 2.6 K/uL (1.8-7.0) 10/02/18 08:07 Lymph # (Auto) 1.6 K/uL (1.0-4.3) 10/02/18 08:07 Taney # (Auto) 0.4 K/uL (0.0-0.8) 10/02/18 08:07 Eos # (Auto) 0.2 K/uL (0.0-0.7) 10/02/18 08:07 Baso # (Auto) 0.0 K/uL (0.0-0.2) 10/02/18 08:07 PT 18.8 SECONDS (9.7-12.2) H D 10/02/18 08:07 INR 1.7 D 10/02/18 08:07 APTT 33 SECONDS (21-34) 10/02/18 08:07 D-Dimer, Quantitative < 200 ng/mlDDU (0-243) 10/01/18 13:53 Sodium 137 mmol/L (132-148) 10/02/18 08:07 Potassium 4.1 mmol/L (3.6-5.2) 10/02/18 08:07 Chloride 102 mmol/L (98-107) 10/02/18 08:07 Carbon Dioxide 22 mmol/L (22-30) 10/02/18 08:07 Anion Gap 17 (10-20) 10/02/18 08:07 BUN 13 mg/dL (9-20) 10/02/18 08:07 Creatinine 0.8 mg/dL (0.8-1.5) 10/02/18 08:07 Est GFR ( Amer) > 60 10/02/18 08:07 Est GFR (Non-Af Amer) > 60 10/02/18 08:07 POC Glucose (mg/dL) 136 mg/dL (65-110) H 10/02/18 06:19 Random Glucose 138 mg/dL (75-110) H 10/02/18 08:07 Hemoglobin A1c 8.7 % (4.2-6.5) H 10/01/18 08:28 Calcium 9.1 mg/dl (8.6-10.4) 10/02/18 08:07 Phosphorus 3.4 mg/dL (2.5-4.5) 10/02/18 08:07 Magnesium 1.8 mg/dL (1.6-2.3) 10/02/18 08:07 Total Bilirubin 1.0 mg/dL (0.2-1.3) 10/02/18 08:07 AST 26 U/L (17-59) 10/02/18 08:07 ALT 25 U/L (21-72) 10/02/18 08:07 Alkaline Phosphatase 55 U/L (38-126) 10/02/18 08:07 Total Creatine Kinase 86 U/L (55-170) 10/01/18 02:25 CK-MB (Mass) 0.80 ng/mL (0.0-3.38) 10/01/18 02:25 Troponin I < 0.0120 ng/mL (0.00-0.120) 10/01/18 02:25 NT-Pro-B Natriuret Pep 52.6 pg/mL (0-900) 09/30/18 14:48 Total Protein 7.8 g/dL (6.3-8.3) 10/02/18 08:07 Albumin 4.1 g/dL (3.5-5.0) 10/02/18 08:07 Globulin 3.7 gm/dL (2.2-3.9) 10/02/18 08:07 Albumin/Globulin Ratio 1.1 (1.0-2.1) 10/02/18 08:07 Triglycerides 234 mg/dL (0-149) H 10/01/18 08:28 Cholesterol 159 mg/dL (0-199) 10/01/18 08:28 LDL Cholesterol Direct 91 mg/dL (0-129) 10/01/18 08:28 HDL Cholesterol 28 mg/dL (30-70) L 10/01/18 08:28 Free T4 0.82 ng/dL (0.78-2.19) 10/01/18 08:28 TSH 3rd Generation 1.29 mIU/L (0.46-4.68) 09/30/18 19:18 - Hospital Course Hospital Course: CC: Left sided Chest Pain 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 Patient reports that since the initiation of his chest pain, he has been experiencing his symptoms daily in an intermittent pattern. Patient describes his chest pain as non-radiating dull, achy intermittent pain that lasts for 15- 20 minutes that is relieve by a medication patient cannot recall. Patient reports that his chest pain occurs at rest and on exertion. Patient denies any other associated symptoms such as nausea, vomiting, diaphoresis, palpitations, syncope and numbness/tingling but does admits to mild shortness of breath that exacerbated on exertion. Patient [place] most of his care in [place] country Code Status: Full code PMD: None Janitorial Maintenance Worker: None PMHx:HTN, DM, CAD, bilateral Glaucoma PSHx: CABG (November 21, 2013 at [facility]), FHx: Unknown Medications: As per EMR: Asa 81mg PO QD, Plavix 75mg PO daily, liptor 10mg PO HS, Azpot 1drop OU BID, warfarin 5mg PO daily and Zioptan 1 drop OU HS Allergies: NKDA Social Hx: Lives with one of his daughter in [place]. Retired. Denies any current or former use of Tobacco, ETOH and illicit drug use Hospital Course: 67M admitted for Stable Angina Pt was admitted for Stable Angina. Recieved 325mg of ASA in ED. Cardiology was consulted, Dr. Amin, recommeding hiram scan nuclear stress test for visualization on 10/02, possible cath. Pt * Troponin negative X2, NAYLA panel neg X2 * ASA 81mg PO daily * Continue Plavix 75mg PO daily * Crestor 5mg PO HS * Lisinopril 2.5mg QD * Toprol XL 12.5mg QD Pt has a hx of DM, found to have a HgbA1c 8.9. Pt was givenISS-Low dose, Accuchecks ACHS, Hypoglycemia protocol, Pt remained Euglycemic. For his hx of HLD, pt was given Crestor 5mg PO HS For his hx of Glaucoma, pt was given Dorzolamide OU TID, Lantaprost OU TID drops Prophylactic measures for DVT were started by giving the pt SCDS and lovenox 40mg SC daily Pt was stable for DC home on 10/02 after stress test, Cleared by Dr Amin, asymptomatic, f/u outpt Imaging and Dx: * EKG: NSR at 72 BPM, T-wave inversion in anterolateral leads * Similar subsequent EKG * Echocardiogram: * Nuclear Stress Test: No indication for originally scheduled cath PLAN Pt is to be discharged home Pt is to follow up with Dr Amin in one week in office Pt is to Follow up at [facility] Floor [facility] SaturdayOctober 06 at 9am please follow up INR Pt is to take the following Home medications as prescribed Plavix 75mg by mouth at 8am Toprol 25mg by mouth at 8am Lisinopril 2.5mg by mouth at 8am Dorzolamide Eyes Drops 8am 12pm ang 8pm Lantaprost Eye Drops 8pm Metformin 1000mg by mouth 8am and 8pm Lipitor 10mg by mouth at 8pm Ranexa 500mg by mouth at 8am Coumadin 5mg by mouth at 8am Take care and be well THIS IS A SUMMARY, PLEASE REFER TO [facility] FOR COMPLETE RECORDS Discharge Exam - Head Exam Head Exam: ATRAUMATIC, NORMOCEPHALIC - ENT Exam ENT Exam: Normal External Ear Exam - Additional Findings Additional findings: - Constitutional Appears: No Acute Distress - Head Exam Head Exam: ATRAUMATIC, NORMAL INSPECTION - Eye Exam Eye Exam: EOMI, Normal appearance - ENT Exam ENT Exam: Mucous Membranes Moist - Respiratory Exam Respiratory Exam: Clear to Auscultation Bilateral, NORMAL BREATHING PATTERN. absent: Chest Wall Tenderness, Prolonged Expiratory Phase, Rales, Rhonchi, Wheezes Additional comments: Healed mid-sternum scar; s/p CABG 2013 - Cardiovascular Exam Cardiovascular Exam: Bradycardia, REGULAR RHYTHM, +S1, +S2 - GI/Abdominal Exam GI & Abdominal Exam: Normal Bowel Sounds, Soft. absent: Diminished Bowel Sounds, Distended, Firm, Guarding, Tenderness - Extremities Exam Extremities exam: Positive for: normal inspection. Negative for: calf tenderness, pedal edema - Back Exam Back exam: NORMAL INSPECTION. absent: CVA tenderness (L), CVA tenderness (R) - Neurological Exam Neurological exam: Alert, Oriented x3 - Psychiatric Exam Psychiatric exam: Normal Affect - Skin Skin Exam: Normal Color Discharge Plan - Discharge Medications Prescriptions: Atorvastatin [Lipitor] 1 tab PO DAILY #30 tab Clopidogrel [Plavix] 1 tab PO DAILY #30 tab Dorzolamide 2% [Trusopt] 0 ml OU TID #1 bottle Latanoprost 0.005% Opht [Xalatan Opht] 0.05 ml OU QPM #1 bottle Lisinopril [Zestril] 2.5 mg PO DAILY #30 tab MetFORMIN [glucoPHAGE] 1,000 mg PO BID #60 tab Metoprolol Succinate XL [Toprol XL] 25 mg PO DAILY #30 tab Ranolazine [Ranexa] 500 mg PO DAILY #30 ter Warfarin Sodium 1 tab PO DAILY #14 tablet - Follow Up Plan Condition: STABLE Disposition: HOME/ ROUTINE Instructions: High Blood Pressure (DC), Chest Pain (DC), Diabetes Type 2 (DC), Glaucoma (DC), Warfarin, Going Home on Blood Thinners , Diabetes and Diet Additional Instructions: Pt is to be discharged home Pt is to follow up with Dr Amin in one week in office Pt is to Follow up at [facility] SaturdayOctober 06 at 9am please follow up INR Pt is to take the following Home medications as prescribed Plavix 75mg by mouth at 8am Toprol 25mg by mouth at 8am Lisinopril 2.5mg by mouth at 8am Dorzolamide Eyes Drops 8am 12pm ang 8pm Lantaprost Eye Drops 8pm Metformin 1000mg by mouth 8am and 8pm Lipitor 10mg by mouth at 8pm Ranexa 500mg by mouth at 8am Coumadin 5mg by mouth at 8am Take care and be well Referrals: [facility] [Outside] - 10/06/18 9:00 am Jacek Amin MD [Staff Provider] -
--- NOTE | 2018-10-03 07:06 | VASCLAB ---
Date of service: 10/01/2018 PROCEDURE: Lower Extremity Venous Duplex Exam. HISTORY: DVT PRIORS: None. TECHNIQUE: Bilateral common femoral, femoral, popliteal and posterior tibial, peroneal and great saphenous veins were evaluated. Flow was assessed with color Doppler, compressibility, assessment of phasic flow and augmentation response. Report prepared by KAREEN Edmonds, RVT FINDINGS: RIGHT: 1. Common Femoral Vein: 1.1. Compressibility - Fully compressible: Thrombus - None : Flow - Phasic: Augmentation -Normal: Reflux - None. 2. Femoral Vein: 2.1. Compressibility - Fully compressible: Thrombus - None : Flow - Phasic: Augmentation -Normal: Reflux - None. 3. Popliteal Vein: 3.1. Compressibility - Fully compressible: Thrombus - None : Flow - Phasic: Augmentation -Normal: Reflux - None. 4. Posterior Tibial Vein: 4.1. Compressibility - Fully compressible: Thrombus - None: Flow - Phasic: Augmentation -Normal: Reflux - None. 5. Peroneal Vein: 5.1. Compressibility - Fully compressible: Thrombus - None: Flow - Phasic: Augmentation -Normal: Reflux - None. 6. Great Saphenous Vein: 6.1. Compressibility - : Thrombus - : Flow - : Augmentation - : Reflux - . LEFT: 1. Common Femoral Vein: 1.1. Compressibility - Fully compressible: Thrombus - None: Flow - Phasic: Augmentation -Normal: Reflux - None. 2. Femoral Vein: 2.1. Compressibility - Fully compressible: Thrombus - None: Flow - Phasic: Augmentation -Normal: Reflux - None. 3. Popliteal Vein: 3.1. Compressibility - Fully compressible: Thrombus - None : Flow - Phasic: Augmentation -Normal: Reflux - None. 4. Posterior Tibial Vein: 4.1. Compressibility - Fully compressible: Thrombus - None: Flow - Phasic: Augmentation -Normal: Reflux - None. 5. Peroneal Vein: 5.1. Compressibility - Fully compressible: Thrombus - None: Flow - Phasic: Augmentation -Normal: Reflux - None. 6. Great Saphenous Vein: 6.1. Compressibility - : Thrombus - : Flow - : Augmentation - : Reflux - . OTHER FINDINGS: Right: None significant. Left: None significant. IMPRESSION: Right: No evidence of deep or superficial vein thrombosis of the right lower extremity. Normal valve function noted of the right side. Left: No evidence of deep or superficial vein thrombosis of the left lower extremity. Normal valve function noted of the left side.
--- NOTE | 2018-10-03 07:07 | VASCLAB ---
Date of service: 10/01/2018 PROCEDURE: Upper Extremity Venous Duplex Exam HISTORY: DVT PRIORS: None. TECHNIQUE: Bilateral upper extremity, internal jugular, subclavian, axillary, brachial, ulnar, radial, basilic and upper cephalic veins were evaluated. Flow was assessed with color Doppler, compressibility, assessment of phasic flow and augmentation response. Report prepared by Osmani Forbes, KAREEN, RVT FINDINGS: RIGHT: 1. Internal Jugular: 1.1. Compressibility - Fully compressible: Thrombus - None : Flow - Phasic: Augmentation -Normal: Reflux - None. 2. Subclavian: 2.1. Compressibility - Fully compressible: Thrombus - None : Flow - Phasic: Augmentation -Normal: Reflux - None. 3. Axillary: 3.1. Compressibility - Fully compressible: Thrombus - None : Flow - Phasic: Augmentation -Normal: Reflux - None. 4. Brachial: 4.1. Compressibility - Fully compressible: Thrombus - None: Flow - Phasic: Augmentation -Normal: Reflux - None. 5. Ulnar: 5.1. Compressibility - Fully compressible: Thrombus - None: Flow - Phasic: Augmentation -Normal: Reflux - None. 6. Radial: 6.1. Compressibility - Fully compressible: Thrombus - None: Flow - Phasic: Augmentation - Normal: Reflux - None. 7. Cephalic: 7.1. Compressibility - Fully compressible: Thrombus - None: Flow - : Augmentation -: Reflux - . 8. Basilic: 8.1. Compressibility - Fully compressible: Thrombus - None: Flow - Phasic: Augmentation -Normal: Reflux - None. LEFT: 1. Internal Jugular: 1.1. Compressibility - Fully compressible: Thrombus - None : Flow - Phasic: Augmentation -Normal: Reflux - None. 2. Subclavian: 2.1. Compressibility - Fully compressible: Thrombus - None : Flow - Phasic: Augmentation -Normal: Reflux - None. 3. Axillary: 3.1. Compressibility - Fully compressible: Thrombus - None : Flow - Phasic: Augmentation -Normal: Reflux - None. 4. Brachial: 4.1. Compressibility - Fully compressible: Thrombus - None: Flow - Phasic: Augmentation -Normal: Reflux - None. 5. Ulnar: 5.1. Compressibility - Fully compressible: Thrombus - None: Flow - Phasic: Augmentation -Normal: Reflux - None. 6. Radial: 6.1. Compressibility - Fully compressible: Thrombus - None: Flow - Phasic: Augmentation - Normal: Reflux - None. 7. Cephalic: 7.1. Compressibility - Fully compressible: Thrombus - None: Flow - : Augmentation -: Reflux - . 8. Basilic: 8.1. Compressibility - Fully compressible: Thrombus - None: Flow - Phasic: Augmentation -Normal: Reflux - None. OTHER FINDINGS: Right: None. Left: None. IMPRESSION: Right: No evidence of vein thrombosis of the right upper extremity with excellent venous flow. Normal valve function noted of the right side. Left: No evidence of vein thrombosis of the left upper extremity with excellent venous flow. Normal valve function noted of the left side.
[2018-10-03] MEDS ORDERED: Influenza Vaccine 60 MCG/0.5 ML SYR (3 yr & up) IM ONE (10:00)
[2018-10-03] MEDS ORDERED: Pneumococcal 23-Valent Vaccine IM ONE (10:00)
== END 2018-10-02 16:32 | disposition home or self-care (01) | DRG 198 ==
LOC: C.ER 13:25 → C.9E 16:53 → C.5S 21:26 → OBSVTOIN 10-02 13:05
PROVIDERS: ADMIT Internal Medicine; ATTEND Internal Medicine
DX: I25.118 Atherosclerotic heart disease of native coronary artery with other forms of angina pectoris (principal); I10 Essential (primary) hypertension; E11.9 Type 2 diabetes mellitus without complications; E87.6 Hypokalemia; E78.5 Hyperlipidemia, unspecified; H40.9 Unspecified glaucoma; Z95.1 Presence of aortocoronary bypass graft; Z79.01 Long term (current) use of anticoagulants; Z79.02 Long term (current) use of antithrombotics/antiplatelets; Z98.84 Bariatric surgery status